=== PATIENT | male | born 1980 | race Caucasian/White ===

== ENCOUNTER 2022-04-02 10:39 | Emergency (ER) | payer BC, SELFPAY ==
--- NOTE | ~2022-04-02 | XR_ITS ---
EXAMINATION: [id number] INDICATION: Left lateral rib pain TECHNIQUE: Frontal view of the chest and 3 views of the left ribs were obtained. COMPARISON: None. FINDINGS: The lungs are free of acute opacities. No pleural effusion or pneumothorax. There appears t o be old healed fracture of the left sixth rib. No definite acute fracture is identified. The cardiom ediastinal silhouette is normal. IMPRESSION: 1. No acute cardiopulmonary abnormality or evidence of displaced rib fracture. Reviewed, dictated and finalized at location A.
[2022-04-02 10:40] VITALS: BP 218/121; PULSE 94; RESP 20; TEMP 36.7; O2SAT 98
--- NOTE | 2022-04-02 11:07 | PC.NURSE ---
pt refused IV and MEDS Pt refused all meds except tylenol and motrin pt refused labs
[2022-04-02 11:08] VITALS: PULSE 98
--- NOTE | 2022-04-02 11:09 | ED.GENADULT ---
HPI - General Adult General Chief complaint: Arrhythmia/Palpitations Stated complaint: left side pain History of Present Illness HPI narrative: This is a 42-year-old male presenting ED with a chief complaint of left-sided rib pain. Patient says that he tripped on a wire over the weekend and had some abrasions on his hands and knees but does not remember hitting his left side. When he woke up this morning he was having stabbing pain with point tenderness in the left lateral ribcage. Pain is nonradiating, 7 out 10 intensity and constant. He has never experienced pain like this before. It is worsened with movement. There are no alleviating factors. He has not taken anything for pain control. Patient denies fever, chills, chest pain, shortness of breath abdominal pain. Patient is a daily drinker. Patient also has elevated blood pressure today. The patient says that he knows he has a history of high blood pressure. He is not interested taking any medications. He does not want any lab work. He is refusing everything except a chest x-ray and Motrin/Tylenol. Related Data Allergies Allergy/AdvReac Type Severity Reaction Status Date / Time No Known Allergies Allergy Verified 04/02/22 10:32 Review of Systems Review of Systems: CONSTITUTIONAL: Denies night sweats. EYES: No eye pain ENT: Denies rhinorrhea CARDIOVASCULAR: Denies palpitations RESPIRATORY: Denies hemoptysis GASTROINTESTINAL: Denies hematemesis GENITOURINARY: Denies hematuria. SKIN: Denies rash MUSCULOSKELETAL: Denies myalgia. NEUROLOGIC: Denies weakness. PSYCHIATRIC: Denies delusions [facility] Past Medical History Medical History EtOH dependence Hypertension Social History Social History Smoking status: Current every day smoker Alcohol intake: current Exam Narrative: APPEARANCE: Patient is tremulous. Head atraumatic. EYES: PERRLA/EOMI, NOSE: Normal no drainage NECK: Supple, Trachea midline RESPIRATORY: CTAB, No increased work of breathing. CARDIOVASCULAR: S1S2 appreciated ABDOMINAL: Soft, nontender, nondistended, MUSCULOSKELETAl: Patient has point tenderness over the left lateral ribcage. He has pain with lateral loading of the rib cage. No pain with AP loading. No crepitus. NEURO: Alert. Moving 4/4 extremities SKIN:: Warm, dry. Normal color PSYCHIATRIC: Normal affect Course Vital Signs Vital signs: Vital Signs Temperature 98.0 F 04/02/22 10:40 Pulse Rate 94 04/02/22 10:40 Respiratory Rate 20 04/02/22 10:40 Blood Pressure 218/121 H 04/02/22 10:40 Pulse Oximetry 98 04/02/22 10:40 Oxygen Delivery Room Air 04/02/22 10:40 Temperature 98.0 F 04/02/22 10:40 Pulse Rate 98 04/02/22 11:08 Respiratory Rate 20 04/02/22 10:40 Blood Pressure 218/121 H 04/02/22 10:40 Pulse Oximetry 98 04/02/22 10:40 Oxygen Delivery Room Air 04/02/22 10:40 Medical Decision Making MDM Narrative Medical decision making narrative: This is a 42-year-old male presenting ED with a chief complaint of left-sided rib pain. Patient is a heavy drinker. He states that he did fall over the weekend but he does not remember hitting his left side. A chest x-ray with left-sided rib views been ordered. The patient is given Motrin/Tylenol. Patient's blood pressure is quite elevated today. He knows that he has a history of high blood pressure. I asked if he is taking medications and he said he refuse is to take medications because of the terrible side effects that they have on people. He has refused any medications here. Additionally the patient appears to be in early alcohol withdrawal. I offered him Ativan and he refused. He has no interest in quitting alcohol. Chest x-ray shows a an old fracture on the left side of the 6th rib. There is no displaced rib fracture. There is no evidence of pneumo or hemo
[2022-04-02] MEDS: ACETAMINOPHEN 500 MG TABLET 1000 MG PO (11:11)
[2022-04-02] MEDS: IBUPROFEN 400 MG TABLET 800 MG PO (11:11)
[2022-04-02 11:32] VITALS: BP 149/110; PULSE 100; RESP 20; O2SAT 98
--- NOTE | 2022-04-02 11:55 | PC.NURSE ---
PT REFUSED MED FOR ELEVATED B/P PT GIVEN RISK OF HTN LEADING TO STROKE
== END 2022-04-02 11:53 | disposition home or self-care (01) ==
PROVIDERS: Emergency Provider Emergency Medicine
DX: F10.20 Alcohol dependence, uncomplicated (principal); I10 Essential (primary) hypertension; R07.81 Pleurodynia
CPT/HCPCS: 71101; 99283; A9270